=== PATIENT | female | born 1980 | race African-American/Black ===

== ENCOUNTER 2023-12-08 18:39 | Emergency (ER) | payer OTHER ==
[~2023-12-08] VITALS: Ht 180.3 cm; Wt 137.0 kg
[2023-12-08 18:41] VITALS: O2SAT 97
[2023-12-08 19:30] VITALS: TEMP 98.2
[2023-12-08] MEDS: LEVETIRACETAM 1000MG PREMIX 100 ML IV ONE (19:37)
[2023-12-08 19:46] LABS: BASOPHILS % 0.7 % (0.0-2.0); DIFFERENTIAL COMMENT 0; EOSINOPHILS % 1.1 % (0.0-5.0); HEMATOCRIT. 35.9 % (36.0-48.0); HEMOGLOBIN. 11.5 g/dL (12.0-16.0); LYMPHOCYTES % 21.7 % (20.0-50.0); MEAN CORPUSCULAR HEMOGLOBIN 24.4 pg (28.0-32.0); MEAN CORPUSCULAR VOLUME 76.3 fL (81.0-99.0); MEAN PLATELET VOLUME 8.7 fl (7.4-10.4); MONOCYTES % 5.2 % (2.0-8.0); NEUTROPHILS % 71.3 % (40.0-76.0); PLATELET 318 x1000/uL (130-400); RED BLOOD CELL COUNT 4.71 mill/uL (4.2-5.4); RED CELL DISTRIBUTION WIDTH 16.5 % (11.6-14.6); WHITE BLOOD COUNT 12.5 x1000/uL (4.5-11.0)
[2023-12-08 19:58] LABS: HCG SCREEN NEGATIVE
[2023-12-08 20:00] VITALS: BP 154/108; PULSE 79; RESP 17
[2023-12-08 20:03] LABS: ALANINE AMINOTRANSFERASE 43 IU/L (10-49); ALBUMIN 4.9 g/dL (3.2-4.8); ASPARTATE AMINOTRANSFERASE 41 IU/L (<34); BILIRUBIN TOTAL 0.4 mg/dL (0.1-1.0); CALCIUM 9.2 mg/dL (8.7-10.4); CARBON DIOXIDE 20 mEq/L (21-32); CHLORIDE 108 mEq/L (98-107); CREATININE 1.2 mg/dL (0.6-1.0); GLUCOSE 100 mg/dL (70-105); POTASSIUM 4.5 mEq/L (3.5-5.1); PROTEIN TOTAL 8.2 g/dL (6.0-8.3); SODIUM 137 mEq/L (136-145); UREA NITROGEN BLOOD 10 mg/dL (9-23)
[2023-12-08] MEDS ORDERED: DIPHENHYDRAMINE 50MG CAPSULE PO NR (21:15)
[2023-12-08] MEDS: DIPHENHYDRAMINE 25MG CAPSULE PO NR (21:27)
[2023-12-08] MEDS: KETOROLAC 30MG/ML VIAL IV NR (21:27)
== END 2023-12-08 21:45 | disposition home or self-care (01) ==
LOC: ER 18:39
DX: R56.9 Unspecified convulsions (principal); I10 Essential (primary) hypertension
CPT/HCPCS: 80053; 80185; 84703; 85025; 36415; 70450; 96365; 96366; 96375; 99285; Q0163; J1953; J1885; Z7610